=== PATIENT | male | born 1975 | race Caucasian/White ===

== ENCOUNTER → 2018-10-10 17:16 | Outpatient (CLI) | payer BC, SELFPAY ==
--- NOTE | 2018-10-10 17:21 | CT_ITS ---
STUDY: CT BRAIN WITHOUT CONTRAST REASON FOR EXAM: Male, 43 years old. Hematoma on face RADIATION DOSAGE (If Supplied By Facility): CTDIvol = ( 44.99 ) mGy, DLP = ( 1445.99 ) mGycm TECHNIQUE: Transaxial CT imaging of the brain was performed without administration of intravenous contrast material. Individualized dose optimization techniques were used for this CT. COMPARISON: None. FINDINGS: There is a sizable right facial soft tissue hematoma measuring 2.9 x 2.2 cm with surrounding edema which extends to the right periorbital region. This is partially visualized on this study as it is at the level of the right maxilla. Normal calvarium. The visualized prominent extra-axial space in the left temporal region compatible with an arachnoid cyst. It is a subtle focus of right posterior parietal soft tissue swelling. Normal size ventricles and extra-axial spaces for the patient's age. Normal white matter tracts of the cerebral hemispheres. Normal basal ganglia and thalami. Normal brainstem. Normal cerebellum. There is no intracranial hemorrhage. There are no findings of an acute ischemic infarction. Normal visualized paranasal sinuses. CT/Brain/Head without Contrast IMPRESSION: The visualized right facial soft tissue edema and hematoma at the level of the right maxilla. If there is concern for facial bone fracture, Dedicated facial bone CT would be suggested for further evaluation. The visualized calvarium orbital soft tissues appear to be intact. No evidence of acute hemorrhage infarct or edema. Subtle posterior parietal soft tissue swelling. Electronically Signed: Eve Barron MD at 17:56 EST Tel , Service support ,
== END ==
PROVIDERS: Family Provider Family Medicine; PCP Family Medicine; Referring Provider Nurse Practitioner Family; Visit Provider Nurse Practitioner Family
DX: S00.83XA Contusion of other part of head, initial encounter (principal)
CPT/HCPCS: 70450

== ENCOUNTER → 2018-10-11 11:38 | Outpatient (CLI) | payer BC, SELFPAY ==
[2016-08-31 21:17] VITALS: BMI 31.8
--- NOTE | 2018-10-11 11:42 | RAD_ITS ---
STUDY: X-RAY - FACIAL BONES REASON FOR STUDY: Male, 43 years old. Fall off ladder, hit face TECHNIQUE: 5 view(s) of the facial bones. COMPARISON: None. FINDINGS: Normal bilateral frontozygomatic and zygomatic-temporal arches. Normal bilateral medial and inferior orbital petersen. Normal bilateral orbits. Normal visualized nasal bones. Normal anterior nasal spine. The remaining visualized osseous structures are normal. There are minimal bilateral mucosal retention cyst or thickening suggested. RAD/Facial Bones min 3 Views IMPRESSION: No visualized evidence of an acute fracture. Electronically Signed: Eve Barron MD at 16:19 EST Tel , Service support ,
== END ==
PROVIDERS: Family Provider Family Medicine; PCP Family Medicine; Referring Provider Family Medicine; Visit Provider Family Medicine
DX: S00.83XA Contusion of other part of head, initial encounter (principal)
CPT/HCPCS: 70150

== ENCOUNTER → 2020-08-06 15:38 | Outpatient (CLI) | payer BC, SELFPAY | PROVIDERS: PCP Family Medicine; Referring Provider Family Medicine; Visit Provider Family Medicine | DX: B34.9 Viral infection, unspecified (principal) | CPT/HCPCS: 87635; U0003 ==

== ENCOUNTER → 2022-05-18 | Outpatient (CLI) | payer BC, SELFPAY ==
[2022-05-18 15:33] LABS: Vitamin D,25 Hydroxy 21.6 ng/mL
[2022-05-18 15:42] LABS: Anion Gap 11 (5-15); BUN 12 mg/dL (7-18); BUN/Creat Ratio 13.8 RATIO (10-20); Calcium,Total 9.5 mg/dL (8.5-10.1); Chloride 104 mmol/L (98-107); Cholesterol 219 mg/dL (200); Creatinine, Serum 0.87 mg/dL (0.70-1.30); EST Glomerular Filtration Rate 100 mL/min (>60); Est Glom Filt Rate - Afr Amer 121 mL/min (>60); Glucose 104 mg/dL (74-106); High Density Lipoprotein 39 mg/dL; Potassium 3.6 mmol/L (3.5-5.1); Sodium Level 141 mmol/L (136-145); Thyroid Stim Hormone (TSH) 1.39 uIU/mL (0.358-3.74); Triglycerides 178 mg/dL; Very Low Density Lipoprotein 36 mg/dL (5-40)
== END | disposition home or self-care (01) ==
LOC: MTLAB 11:30
PROVIDERS: PCP Family Medicine; Referring Provider Family Medicine; Visit Provider Family Medicine
DX: Z00.00 Encounter for general adult medical examination without abnormal findings (principal)
CPT/HCPCS: 36415; 80048; 80061; 82306; 84403; 84443

== ENCOUNTER → 2023-08-05 | Outpatient (CLI) | payer BC, SELFPAY ==
--- NOTE | 2023-08-05 11:27 | RAD_ITS ---
STUDY: X-RAY - LEFT ELBOW REASON FOR EXAM: Male, 47 years old. Pain. TECHNIQUE: 3 view(s) of the elbow. COMPARISON: None. FINDINGS: Normal visualized humerus, radius and ulna. Normal radiocapitellar and ulnotrochlear articulations. Focal ossification of the proximal medial collateral ligament RAD/Elbow min 3 Views IMPRESSION: Calcific tendinosis medially. Electronically Signed: Dane Parson MD at 12:15 EST ,
== END | disposition home or self-care (01) ==
PROVIDERS: PCP Family Medicine; Referring Provider Family Medicine; Visit Provider Family Medicine
DX: M25.522 Pain in left elbow (principal)
CPT/HCPCS: 73080

== ENCOUNTER → 2025-08-14 | Outpatient (CLI) | payer BC, SELFPAY ==
[2025-08-14 16:05] LABS: Anion Gap 10 (5-15); BUN 13 mg/dL (4-19); BUN/Creat Ratio 17.1 RATIO (10-20); Calcium,Total 9.4 mg/dL (7.6-11.0); Carbon Dioxide 25.0 mmol/L (21.0-32.0); Chloride 103 mmol/L (98-108); Cholesterol 197 mg/dL (<=200); Glucose 101 mg/dL (70-99); Low Density Lipoprotein Calc. 127 mg/dL; PSA,Total - Annual Screen 1.07 ng/mL (0.02-4.00); Potassium 4.2 mmol/L (3.3-5.1); Triglycerides 183 mg/dL; Very Low Density Lipoprotein 37 mg/dL (5-40); cholesterol:hdl ratio screen 5.27
== END | disposition home or self-care (01) ==
PROVIDERS: PCP Family Medicine; Referring Provider Family Medicine; Visit Provider Family Medicine
DX: Z00.00 Encounter for general adult medical examination without abnormal findings (principal); Z12.5 Encounter for screening for malignant neoplasm of prostate
CPT/HCPCS: 36415; 80048; 80061; 84153; G0103